=== PATIENT | female | born 1985 | race Two or more races ===

== ENCOUNTER 2020-05-22 22:15 | Observation (INO) | payer OTHER, MEDICAID ==
[~2020-05-22] VITALS: Ht 154.9 cm; Wt 66.2 kg
== END 2020-05-22 23:46 | disposition home or self-care (01) ==
LOC: LDRP 22:15
PROVIDERS: ADMIT Specialist; ATTEND Specialist
DX: O9A.212 Injury, poisoning and certain other consequences of external causes complicating pregnancy, second trimester (principal); S50.319A Abrasion of unspecified elbow, initial encounter; S80.219A Abrasion, unspecified knee, initial encounter; Z3A.22 22 weeks gestation of pregnancy; X58.XXXA Exposure to other specified factors, initial encounter; Y93.89 Activity, other specified; Y92.89 Other specified places as the place of occurrence of the external cause
CPT/HCPCS: 59025; 76815; 81002; G0378

== ENCOUNTER 2020-07-21 08:32 | Observation (INO) | payer OTHER, MEDICAID ==
[2020-07-21] MEDS ORDERED: PREN-96 PO (09:30)
[2020-07-21] MEDS ORDERED: CETI1TAB36 PO (09:31)
== END 2020-07-21 09:54 | disposition home or self-care (01) ==
LOC: LDRP 08:32 → UNDOADMOB 08:32 → UNDODISOB 09:54
PROVIDERS: ADMIT Specialist; ATTEND Specialist
DX: O26.13 Low weight gain in pregnancy, third trimester (principal); Z3A.30 30 weeks gestation of pregnancy
CPT/HCPCS: 59025; 76818; 81002; G0378

== ENCOUNTER 2020-07-28 08:09 | Observation (INO) | payer OTHER, MEDICAID ==
[~2020-07-28] VITALS: Ht 154.9 cm; Wt 66.2 kg
[~2020-07-28 08:09] MED LIST: CETI1TAB36 PO; PREN-96 PO
[2020-07-28] MEDS ORDERED: TERBUTALINE SULFATE 1 MG/ML 1ML VIAL SC SCH (09:15)
[2020-07-28] MEDS ORDERED: LACTATED RINGER'S 1,000 ML IV ONE (09:45)
== END 2020-07-28 11:40 | disposition home or self-care (01) ==
LOC: LDRP 08:09
PROVIDERS: ADMIT Obstetrics & Gynecology; ATTEND Obstetrics & Gynecology
DX: O99.891 Other specified diseases and conditions complicating pregnancy (principal); N13.30 Unspecified hydronephrosis; O60.03 Preterm labor without delivery, third trimester; O26.13 Low weight gain in pregnancy, third trimester; Z3A.31 31 weeks gestation of pregnancy
CPT/HCPCS: 59025; 76818; 81002; 96360; 96372; G0378; J3105

== ENCOUNTER 2020-08-01 23:45 | Observation (INO) | payer OTHER, MEDICAID | END 2020-08-02 00:37 | disposition home or self-care (01) | LOC: LDRP 23:45 | PROVIDERS: ADMIT Specialist; ATTEND Specialist | DX: O62.9 Abnormality of forces of labor, unspecified (principal); Z3A.32 32 weeks gestation of pregnancy | CPT/HCPCS: 59025; 81002; G0378 ==

== ENCOUNTER 2020-08-03 10:07 | Observation (INO) | payer OTHER, MEDICAID | END 2020-08-03 11:30 | disposition home or self-care (01) | LOC: LDRP 10:07 | PROVIDERS: ADMIT Specialist; ATTEND Specialist | DX: O99.891 Other specified diseases and conditions complicating pregnancy (principal); N13.30 Unspecified hydronephrosis; O26.893 Other specified pregnancy related conditions, third trimester; R63.4 Abnormal weight loss; Z3A.32 32 weeks gestation of pregnancy | CPT/HCPCS: 59025; 76818; 81002; G0378 ==

== ENCOUNTER 2020-08-11 10:38 | Observation (INO) | payer OTHER, MEDICAID ==
[~2020-08-11] VITALS: Ht 154.9 cm; Wt 72.6 kg
[2020-08-11] MEDS ORDERED: LACTATED RINGER'S 1,000 ML IV SCH (12:00)
[2020-08-11] MEDS: TERBUTALINE SULFATE 1 MG/ML 1ML VIAL SC SCH ×2 (12:54→13:21)
== END 2020-08-11 14:20 | disposition home or self-care (01) ==
LOC: LDRP 10:38
PROVIDERS: ADMIT Specialist; ATTEND Specialist
DX: O99.891 Other specified diseases and conditions complicating pregnancy (principal); N13.30 Unspecified hydronephrosis; O60.03 Preterm labor without delivery, third trimester; Z3A.33 33 weeks gestation of pregnancy
CPT/HCPCS: 59025; 76818; 81002; 96360; 96372; G0378; J3105; 96361

== ENCOUNTER 2020-08-17 09:11 | Observation (INO) | payer OTHER, MEDICAID ==
[2020-08-17] MEDS ORDERED: NIF10C PO (11:21)
== END 2020-08-17 11:30 | disposition home or self-care (01) ==
LOC: LDRP 09:11
PROVIDERS: ADMIT Specialist; ATTEND Specialist
DX: O99.891 Other specified diseases and conditions complicating pregnancy (principal); N13.30 Unspecified hydronephrosis; O34.63 Maternal care for abnormality of vagina, third trimester; N89.8 Other specified noninflammatory disorders of vagina; Z79.899 Other long term (current) drug therapy; Z3A.34 34 weeks gestation of pregnancy
CPT/HCPCS: 59025; 76818; 81002; G0378

== ENCOUNTER 2020-08-31 09:34 | Observation (INO) | payer OTHER, MEDICAID ==
[~2020-08-31 09:34] MED LIST changes: +NIF10C PO
== END 2020-08-31 11:16 | disposition home or self-care (01) ==
LOC: LDRP 09:34
PROVIDERS: ADMIT Specialist; ATTEND Specialist
DX: O26.833 Pregnancy related renal disease, third trimester (principal); N13.30 Unspecified hydronephrosis; Z3A.36 36 weeks gestation of pregnancy
CPT/HCPCS: 59025; 76818; 81002; G0378

== ENCOUNTER 2020-09-05 12:45 | Observation (INO) | payer OTHER, MEDICAID ==
[~2020-09-05 12:45] MED LIST changes: -NIF10C PO
== END 2020-09-05 13:55 | disposition home or self-care (01) ==
LOC: LDRP 12:45 → UNDOADMOB 12:45 → UNDODISOB 13:55
PROVIDERS: ADMIT Obstetrics & Gynecology; ATTEND Obstetrics & Gynecology
DX: O62.9 Abnormality of forces of labor, unspecified (principal); Z3A.37 37 weeks gestation of pregnancy
CPT/HCPCS: 59025; 81002; G0378

== ENCOUNTER 2020-09-09 13:22 | Observation (INO) | payer OTHER, MEDICAID | END 2020-09-09 14:51 | disposition home or self-care (01) | LOC: LDRP 13:22 | PROVIDERS: ADMIT Specialist; ATTEND Specialist | DX: O99.891 Other specified diseases and conditions complicating pregnancy (principal); N13.30 Unspecified hydronephrosis; O62.9 Abnormality of forces of labor, unspecified; O99.613 Diseases of the digestive system complicating pregnancy, third trimester; K21.9 Gastro-esophageal reflux disease without esophagitis; K80.80 Other cholelithiasis without obstruction; O26.893 Other specified pregnancy related conditions, third trimester; R42 Dizziness and giddiness; H53.9 Unspecified visual disturbance; O21.2 Late vomiting of pregnancy; O99.333 Smoking (tobacco) complicating pregnancy, third trimester; F17.200 Nicotine dependence, unspecified, uncomplicated; Z3A.37 37 weeks gestation of pregnancy | CPT/HCPCS: 59025; 76818; 81002; G0378 ==

== ENCOUNTER 2020-09-11 04:30 | Observation (INO) | payer OTHER, MEDICAID ==
[~2020-09-11] VITALS: Ht 154.9 cm; Wt 74.4 kg
== END 2020-09-11 08:15 | disposition home or self-care (01) ==
LOC: LDRP 04:30 → UNDOADMOB 04:30 → LDRP 06:20 → UNDODISOB 08:15
PROVIDERS: ADMIT Specialist; ATTEND Specialist
DX: O60.03 Preterm labor without delivery, third trimester (principal); Z3A.38 38 weeks gestation of pregnancy
CPT/HCPCS: 59025; 81002; G0378

== ENCOUNTER 2020-09-11 19:02 | Observation (INO) | payer OTHER, MEDICAID ==
[~2020-09-11] VITALS: Ht 154.9 cm; Wt 74.4 kg
== END 2020-09-11 20:03 | disposition home or self-care (01) ==
LOC: LDRP 19:02
PROVIDERS: ADMIT Specialist; ATTEND Specialist
DX: O24.419 Gestational diabetes mellitus in pregnancy, unspecified control (principal); O62.9 Abnormality of forces of labor, unspecified; O99.891 Other specified diseases and conditions complicating pregnancy; N13.30 Unspecified hydronephrosis; Z3A.38 38 weeks gestation of pregnancy
CPT/HCPCS: 59025; 81002; G0378

== ENCOUNTER 2020-09-17 22:26 | Inpatient (IN) | payer OTHER, MEDICAID ==
[~2020-09-17] VITALS: Ht 154.9 cm; Wt 74.4 kg
[2020-09-17] MEDS ORDERED: WITCH HAZEL-GLYCERIN PAD TOP PRN (23:00)
[2020-09-17] MEDS ORDERED: LACT. RINGERS/OXYTOCIN 20UNITS 1,000 ML IV ONE (23:00)
[2020-09-17] MEDS ORDERED: PHISODERM TOP SOLN 240ML BTL TOP PRN (23:00)
[2020-09-17] MEDS ORDERED: LIDOCAINE 2%HCL (LOCAL ANESTH.) INJ 20ML MDV IJ ONE (23:00)
[2020-09-17] MEDS ORDERED: LACTATED RINGER'S 1,000 ML IV SCH (23:00)
[2020-09-17] MEDS ORDERED: DERMOPLAST 60ML BOTTLE TOP PRN (23:00)
[2020-09-17 23:55] LABS: Basophils # (auto) 0 10 ^3/uL (0-0.2); Basophils % (auto) 0.3 % (0.0-2.0); Eosinophils # (auto) 0.1 10 ^3/uL (0-0.8); Hemoglobin 11.2 g/dL (12.2-16.2); Lymphocytes # (auto) 1.9 10 ^3/uL (0.4-5.4); Mean Corpuscular Hemoglobin 26.7 pg (28.0-32.0); Neutrophils # (auto) 9.3 10 ^3/uL (1.6-8.6)
[2020-09-17 23:56] LABS: Eosinophils % (auto) 0.8 % (0.0-7.0); Hematocrit 34.5 % (36.0-46.0); Lymphocytes % (auto) 15.7 % (10.0-50.0); Mean Corpuscular Hgb Conc. 32.5 g/dL (32.0-36.0); Mean Corpuscular Volume 82.2 fL (80.0-100.0); Monocytes # (auto) 0.6 10 ^3/uL (0-1.3); Monocytes % (auto) 5.4 % (0.0-12.0); Neutrophils % (auto) 77.8 % (37.0-80.0); Nucleated Red Blood Cells % 0.3 %; Platelet Count (auto) 306 10^3/uL (140-450); Red Blood Cells 4.19 10^6/uL (4.0-5.20); Red Cell Distribution Width 14.7 % (11.8-14.3)
[2020-09-18 00:16] LABS: Albumin 3.2 g/dL (3.4-5.0); BUN/Creatinine Ratio 7.8; Calcium 8.9 mg/dL (8.5-10.1); Potassium 3.6 mmol/L (3.5-5.1)
[2020-09-18 00:19] LABS: Bilirubin, Total 0.4 mg/dL (0.2-1.0); Total Protein 7.5 g/dL (6.4-8.2)
[2020-09-18 03:25] LABS: INR 0.92 (0.9-1.15); Partial Thromboplastin Time 23.3 sec (23.0-31.2)
[2020-09-18 04:28] LABS: Urine Bacteria FEW /hpf (None Seen); Urine Blood TRACE /uL (Negative); Urine Mucus FEW (None Seen); Urine Specific Gravity 1.018 (1.001-1.035); Urine WBC 1 /hpf (0 - 5)
[2020-09-18] MEDS ORDERED: IBUPROFEN 600 MG TAB PO PRN (07:15)
[2020-09-18 11:10] VITALS: BP 121/79
[2020-09-18 15:01] VITALS: BP 124/72
[2020-09-18 19:30] VITALS: BP 113/70
[2020-09-18 23:00] VITALS: BP 122/85
[2020-09-19 03:00] VITALS: BP 117/59
[2020-09-19 07:00] VITALS: BP 123/71
[2020-09-19 07:06] LABS: RPR Non Reactive (Non Reactive)
[2020-09-19 11:30] VITALS: BP 124/58
== END 2020-09-19 12:50 | disposition home or self-care (01) | DRG 807 ==
LOC: LDRP 22:26 → OBSVTOIN 23:55 → LDRP 09-18 00:13
PROVIDERS: ADMIT Specialist; ATTEND Specialist
PROC: 10E0XZZ Delivery of Products of Conception, External Approach (ICD-10-PCS; principal; 2020-09-18)
PROC: 0W8NXZZ Division of Female Perineum, External Approach (ICD-10-PCS; 2020-09-18)
DX: O80 Encounter for full-term uncomplicated delivery (principal); Z37.0 Single live birth; Z3A.39 39 weeks gestation of pregnancy; Z53.29 Procedure and treatment not carried out because of patient's decision for other reasons; Z20.828 Contact with and (suspected) exposure to other viral communicable diseases
CPT/HCPCS: 36415; 59025; 59409; 80053; 81001; 81002; 85025; 85610; 85730; 86592; 86850; 86900; 86901; 87426; 96361; 96365; G0378; J2590

== ENCOUNTER 2023-01-09 03:07 | Emergency (ER) | payer BC, MEDICAID ==
[~2023-01-09] VITALS: Ht 154.9 cm; Wt 75.0 kg
[2023-01-09 03:44] LABS: Basophils # (auto) 0.1 10 ^3/uL (0-0.2); Basophils % (auto) 0.6 % (0.0-2.0); Eosinophils # (auto) 0.3 10 ^3/uL (0-0.8); Eosinophils % (auto) 3.8 % (0.0-7.0); Hematocrit 38.1 % (36.0-46.0); Lymphocytes # (auto) 3.2 10 ^3/uL (0.4-5.4); Lymphocytes % (auto) 35.9 % (10.0-50.0); Mean Corpuscular Hgb Conc. 34.2 g/dL (32.0-36.0); Mean Corpuscular Volume 84.8 fL (80.0-100.0); Monocytes # (auto) 0.6 10 ^3/uL (0-1.3); Monocytes % (auto) 6.9 % (0.0-12.0); Neutrophils # (auto) 4.8 10 ^3/uL (1.6-8.6); Neutrophils % (auto) 52.8 % (37.0-80.0); Red Blood Cells 4.49 10^6/uL (4.0-5.20); Red Cell Distribution Width 13.3 % (11.8-14.3)
[2023-01-09 03:58] LABS: Potassium 3.5 mmol/L (3.5-5.1)
[2023-01-09 04:01] LABS: BUN/Creatinine Ratio 12.6 (10.0-20.0); Bilirubin, Total 0.2 mg/dL (0.2-1.0)
[2023-01-09] MEDS ORDERED: IODIXANOL 320MG/ML 100ML BTL IV ONE (04:57)
[2023-01-09 05:00] LABS: Urine Bacteria FEW /hpf (None Seen); Urine Blood Negative /uL (Negative); Urine Specific Gravity 1.024 (1.001-1.035); Urine WBC 11 /hpf (0 - 5)
[2023-01-09] MEDS ORDERED: HYDR1TAB97 PO (06:00)
[2023-01-09] MEDS ORDERED: ONDANSETRON HCL 4 MG/2 ML VIAL IV ONE (06:00)
[2023-01-09] MEDS ORDERED: MORPHINE SULFATE INJ 2 MG/ml SYRG IV ONE (06:00)
[2023-01-09 06:20] VITALS: BP 147/85
== END 2023-01-09 06:26 | disposition home or self-care (01) ==
LOC: ER 03:07 → EEVIPCON 03:07 → ER 06:24
DX: R10.11 Right upper quadrant pain (principal); R10.2 Pelvic and perineal pain; Z79.899 Other long term (current) drug therapy
CPT/HCPCS: 36415; 74177; 80053; 81001; 83690; 84702; 85025; 96374; 96375; 99285; J2270; J2405; Q9967

== ENCOUNTER 2025-02-05 10:50 | Inpatient (IN) | payer BC, MEDICAID ==
[~2025-02-05] VITALS: Ht 154.9 cm; Wt 76.3 kg
[~2025-02-05 10:50] MED LIST changes: +HYDR1TAB97 PO
--- NOTE | 2025-02-05 11:22 | ED.PDOC ---
GI ASSESSMENT HPI Comments 39y F who presents to the ED for chief complaint of abdominal pain. Pt states she has been having epigastric abdominal pain for the past 2 hours. Pt states the pain is constant, achy in nature, rating the pain 8/10, radiating to the back, with no noted exacerbating or relieving factors. Pt states she has associated nausea but denies vomiting, diarrhea, fever, cough, or chills. Pt states she has history of gallstones but states no surgery has been done. Pt otherwise denies any other symptoms at this time. Time Seen by MD: :21 Reviewed Notes: Medications, Allergies Allergies: Coded Allergies: NO KNOWN ALLERGIES (Unverified , 09/11/20) Home Meds Active Scripts Hydrocodone-Acetaminophen (Hydrocodone/Acetaminophen 5-325 mg) 1 Tab Tab, 1 TAB PO TIDP PRN for 5 Days, #8 TAB Prov:MARISEL HDZ MD 01/09/23 Reported Medications Cetirizine Hcl (ZYRTEC ALLERGY) 10 Mg Tab, 10 MG PO for SEASONAL ALLERGIES, TAB 07/21/20 Vit W/ Ferrous Fumara ( One Daily) Daily Tab, 1 PO DAILY for , #90 TAB 3 Refills 07/21/20 Information Source: Patient Mode of Arrival: Ambulatory Brought in by: self Timing: Hours Duration: Since onset Prehospital treatment: None Quality: Aching Vomitus: None Stool: Normal Severity: Moderate Recent: Possible spoiled food Recent Hx of: None Pain Location: Diffuse Modifying Factors: Food Associated sign and symptoms: Nausea, Abdominal Pain Past Medical History PAST MEDICAL HISTORY: Gallstones Surgical History: Denies all surgeries MANAGER ENGAGEMENT History: Denies all MANAGER ENGAGEMENT Hx Family History Family History: Reviewed,noncontributory to illness Social History Smoker: Non-Smoker Alcohol: Denies ETOH Use Drugs: Denies Drug Use Lives In: Home Constitutional: denies: chills, diaphoresis, fatigue, fever, malaise, sweats, weakness, others EENTM: denies: blurred vision, double vision, ear bleeding, ear discharge, ear drainage, ear pain, ear ringing, eye pain, eye redness, hearing loss, mouth pain, mouth swelling, nasal discharge, nose bleeding, nose congestion, nose pain, photophobia, tearing, throat pain, throat swelling, voice changes, others Respiratory: denies: cough, hemoptysis, orthopnea, SOB at rest, shortness of breath, SOB with excertion, stridor, wheezing, others Cardiovascular: denies: chest pain, dizzy spells, diaphoresis, Dyspnea on exertion, edema, irregular heart beat, left arm pain, lightheadedness, palpitations, PND, syncope, others Gastrointestinal: reports: abdominal pain, nausea; denies: abdomen distended, blood streaked bowels, constipated, diarrhea, dysphagia, difficulty swallowing, hematemesis, melena, poor appetite, poor fluid intake, rectal bleeding, rectal pain, vomiting, others Genitourinary: denies: abnormal vagina bleeding, burning, dyspareunia, dysuria, flank pain, frequency, hematuria, incontinence, pain, , vagina discharge, urgency, others Neurological: denies: dizziness, fainting, headache, left sided numbness, left sided weakness, numbness, paresthesia, pre-existing deficit, right sided numbness, right sided weakness, seizure, speech problems, tingling, tremors, weakness, others Musculoskeletal: denies: back pain, gout, joint pain, joint swelling, muscle pain, muscle stiffness, neck pain, others Integumetry: denies: bruises, change in color, change in hair/nails, dryness, laceration, lesions, lumps, rash, wounds, others Allergic/Immunocompromised: denies: Difficulty Healing, Frequent Infections, Hives, Itching, others Hematologic/Lymphatic: denies: anemia, blood clots, easy bleeding, easy bruising, swollen glands, others Endocrine: denies: excessive hunger, excessive sweating, excessive thirst, excessive urination, flushing, intolerance to cold, intolerance to heat, unexplained weight gain, unexplained weight loss, others Psychiatric: denies: anxiety, bipolar disorder, depression, hopeless, panic disorder, schizophrenia, sleepless, suicidal, others All Other Systems: Reviewed and Negative Physical Exam General Appearance: Moderate Distress, Obese HEENT: Normal ENT Inspection, Pharynx Normal, TMs Normal Neck: Full Range of Motion, Non-Tender, Normal, Normal Inspection Respiratory: Chest Non-Tender, Lungs Clear, No Accessory Muscle Use, No Respiratory Distress, Normal Breath Sounds Cardiovascular: No Edema, No JVD, No Murmur, No Gallop, Normal Peripheral Pulses, Regular Rate/Rhythm Breast Exam: Deferred Gastrointestinal: Epigastric, No Organomegaly, No Pulsatile Mass, Normal Bowel Sounds, Soft, Tenderness Genitalia: Deferred Pelvic: Deferred Rectal: Deferred Extremities: No calf tenderness, Normal capillary refill, Normal inspection, Normal range of motion, Non-tender, No pedal edema Musculoskeletal : Apperance: Normal Neurologic: Alert, cylinder dyer II-XII nml as Tested, No Motor Deficits, Normal Affect, Normal Mood, No Sensory Deficits Cerebellar Function: Normal Reflexes: Normal Skin: Dry, Normal Color, Warm Lymphatic: No Adenopathy Was a procedure done? Was a procedure done?: No GI differential Dx Differential Diagnosis: Cholecystitis, Gastritis/PUD, Gastroenteritis, Pancreatitis, Dehydration, Electrolyte Imbalance, Food Poisoning, Bacterial, Viral, Kidney Stone Other Differential Diagnosis gallstones, X-Ray, Labs, Meds, VS Vital Signs Date Time Temp Pulse Resp B/P (MAP) Pulse Ox O2 Delivery O2 Flow Rate FiO2 02/05/25 12:37 76 16 110/63 02/05/25 11:45 80 20 100 Room Air* 0 21 02/05/25 11:45 98.0 80 20 118/76 (90) 100 98.0 02/05/25 11:36 80 20 118/76 02/05/25 11:02 98.1 86 16 132/78 (96) 98 98.1 Lab Test 02/05/25 11:13 Range/Units White Blood Count 10.5 4.4-10.8 10^3/uL Red Blood Count 4.51 4.0-5.20 10^6/uL Hemoglobin 13.5 12.2-16.2 g/dL Hematocrit 39.3 36.0-46.0 % Mean Corpuscular Volume 87.2 80.0-100.0 fL Mean Corpuscular Hemoglobin 30.0 28.0-32.0 pg Mean Corpuscular Hemoglobin Concent 34.4 32.0-36.0 g/dL Red Cell Distribution Width 14.0 11.8-14.3 % Platelet Count 246 140-450 10^3/uL Mean Platelet Volume 8.6 6.9-10.8 fL Neutrophils (%) (Auto) 77.0 37.0-80.0 % Lymphocytes (%) (Auto) 16.7 10.0-50.0 % Monocytes (%) (Auto) 4.3 0.0-12.0 % Eosinophils (%) (Auto) 1.4 0.0-7.0 % Basophils (%) (Auto) 0.6 0.0-2.0 % Neutrophils # (Auto) 8.1 1.6-8.6 10 ^3/uL Lymphocytes # (Auto) 1.7 0.4-5.4 10 ^3/uL Monocytes # (Auto) 0.5 0-1.3 10 ^3/uL Eosinophils # (Auto) 0.1 0-0.8 10 ^3/uL Basophils # (Auto) 0.1 0-0.2 10 ^3/uL Nucleated Red Blood Cells 0.1 % Sodium Level 141 136-145 mmol/L Potassium Level 3.8 3.5-5.1 mmol/L Chloride Level 107 98-107 mmol/L Carbon Dioxide Level 24 20-31 mmol/L Anion Gap 10 5-15 Blood Urea Nitrogen 9 9-23 mg/dL Creatinine 0.81 0.550-1.02 mg/dL Glomerular Filtration Rate Calc 96 >90 mL/min BUN/Creatinine Ratio 11.1 10.0-20.0 Serum Glucose 118 H 74-106 mg/dL Calcium Level 9.2 8.7-10.4 mg/dL Total Bilirubin 0.2 0.2-1.0 mg/dL Aspartate Amino Transferase (AST) 11 L 13-40 U/L Alanine Aminotransferase (ALT) 13 7-40 U/L Alkaline Phosphatase 71 46-116 U/L Total Protein 7.5 5.7-8.2 g/dL Albumin 5.0 H 3.2-4.8 g/dL Lipase 52 12-53 U/L Current Medications Medications (Trade) Dose Ordered Sig/Dejan Route Start Time Stop Time Status Last Admin Sodium Chloride 1,000 ml @ 1,000 mls/hr Q1H ONCE IVB 02/05/25 11:15 02/05/25 12:14 DC 02/05/25 11:36 Morphine Sulfate 4 mg ONCE ONCE IV 02/05/25 11:15 02/05/25 11:16 DC 02/05/25 11:36 Pantoprazole Sodium (Protonix) 40 mg ONCE ONCE IV 02/05/25 11:15 02/05/25 11:16 DC 02/05/25 11:37 Prochlorperazine Edisylate (Compazine Inj) 10 mg ONCE ONCE IV 02/05/25 11:15 02/05/25 11:16 DC 02/05/25 11:36 TECHNIQUE: Multiple real-time sonographic images were obtained of the right upper quadrant. IMPRESSION: Cholelithiasis without sonographic evidence of acute cholecystitis. Hepatic steatosis. IV Hep-Lock was established. The patient was given morphine 4 mg IV push The patient was given Protonix 40 mg IV push The patient was given Compazine 10 mg IV push The patient was given a 1 L bolus of normal saline The patient's CBC is within normal limits The chemistry panel is within normal limits At this time, the patient was being admitted to the hospitalist The patient was still having persistent pain so will be admitted with a surgical consult Images Reviewed?: Images reviewed and evaluated by me Time of 1ST Reevaluation: 12:00 Reevaluation 1ST: Unchanged Patient Education/Counseling: Diagnosis, Treatment, Prognosis Family Education/Counseling: No Family Present Departure 1 Departure Time of Disposition: 13:08 Impression: Primary Impression: Intractable abdominal pain Additional Impression: Cholelithiasis Qualified Codes: K80.20 - Calculus of gallbladder without cholecystitis without obstruction Disposition: ADMITTED INPATIENT Admit to: Med Surg Condition: Fair Critical Care Note Critical Care Time?: No Stability Stability form required: Yes Unstable for transfer: ED Physician Assesment (Clinical assesment) Heart Score Heart Score: Heart Score Response (Comments) Value History N/A 0 EKG N/A 0 Age N/A 0 Risk Factors N/A 0 Troponin N/A 0 Total 0 I personally scribed for STEPHANIE XIE MD ([email or web address]) on 02/05/25 at 11:22. Electronically submitted by Margo Vann ([email or web address]). I personally scribed for STEPHANIE XIE MD ([email or web address]) on 02/05/25 at 11:49. Electronically submitted by Margo JEROME). STEPHANIE XIE MD February 05, 2025 11:22
[2025-02-05] MEDS: MORPHINE SULFATE 4 MG/ML SYR/VIAL IV ONE (11:36)
[2025-02-05] MEDS: SODIUM CHLORIDE 0.9% 1,000 ML IVB ONE (11:36)
[2025-02-05] MEDS: PROCHLORPERAZINE EDISYLATE 5 MG/ML 2ML VIAL IV ONE (11:36)
[2025-02-05] MEDS: PANTOPRAZOLE 40 MG/10 ML VIAL INJ IV ONE (11:37)
--- NOTE | 2025-02-05 11:41 | DVH ---
INDICATION: pain TECHNIQUE: Multiple real-time sonographic images were obtained of the right upper quadrant. COMPARISON: None FINDINGS: The liver demonstrates homogenous echotexture without focal mass lesions. The liver measure s 12 cm. There is no intrahepatic or extrahepatic ductal dilatation. The common duct measures 3 mm. Gallstones. The gallbladder wall measures 2 mm and is within normal limits. The right kidney measures 10.2 cm. The right kidney is normal in contour, size, and shape. The echog enicity is normal. There is no hydronephrosis. The pancreas is not well visualized due to overlying bowel gas. IMPRESSION: Cholelithiasis without sonographic evidence of acute cholecystitis. Hepatic steatosis.
[2025-02-05 11:45] VITALS: PULSE 80; RESP 20; O2SAT 100
[2025-02-05 12:02] LABS: Alanine Aminotransferase 13 U/L (7-40); Alkaline Phosphatase 71 U/L (46-116); Anion Gap 10 (5-15); BUN/Creatinine Ratio 11.1 (10.0-20.0); Calcium 9.2 mg/dL (8.7-10.4); Carbon Dioxide 24 mmol/L (20-31); Chloride 107 mmol/L (98-107); Lipase 52 U/L (12-53); Potassium 3.8 mmol/L (3.5-5.1); Sodium 141 mmol/L (136-145); Total Protein 7.5 g/dL (5.7-8.2)
[2025-02-05 12:04] LABS: Aspartate Aminotransferase 11 U/L (13-40); Bilirubin, Total 0.2 mg/dL (0.2-1.0); Blood Urea Nitrogen 9 mg/dL (9-23); Glucose 118 mg/dL (74-106)
[2025-02-05 12:09] LABS: Basophils # (auto) 0.1 10 ^3/uL (0-0.2); Basophils % (auto) 0.6 % (0.0-2.0); Eosinophils # (auto) 0.1 10 ^3/uL (0-0.8); Eosinophils % (auto) 1.4 % (0.0-7.0); Hematocrit 39.3 % (36.0-46.0); Hemoglobin 13.5 g/dL (12.2-16.2); Lymphocytes # (auto) 1.7 10 ^3/uL (0.4-5.4); Lymphocytes % (auto) 16.7 % (10.0-50.0); Mean Corpuscular Hgb Conc. 34.4 g/dL (32.0-36.0); Mean Corpuscular Volume 87.2 fL (80.0-100.0); Monocytes # (auto) 0.5 10 ^3/uL (0-1.3); Monocytes % (auto) 4.3 % (0.0-12.0); Neutrophils # (auto) 8.1 10 ^3/uL (1.6-8.6); Nucleated Red Blood Cells % 0.1 %; Platelet Count (auto) 246 10^3/uL (140-450); Red Blood Cells 4.51 10^6/uL (4.0-5.20); White Blood Cell 10.5 10^3/uL (4.4-10.8)
--- NOTE | 2025-02-05 13:14 | DVHHP2 ---
History of Present Illness Reason for Visit: abd pain History of Present Illness 39-year-old female with a past medical history of gallstones and no significant surgical history who presents with acute onset abdominal pain that began around 8:30 AM today. The patient describes the pain as severe and similar in character to a prior episode one year ago when she was diagnosed with gallstones. She denies any fever, nausea, vomiting, diarrhea, chest pain, or shortness of breath. She presented to the emergency department due to the intensity of the current pain. On exam, she was in moderate distress due to pain. Labs revealed a normal CBC and CMP, though her blood glucose was noted to be mildly elevated. She was treated in the ED with Compazine, Protonix, and morphine, which provided some symptom relief. Imaging via RUQ ultrasound showed cholelithiasis without signs of cholecystitis or biliary obstruction. Given the recurrence of symptoms and imaging findings, she will be admitted for further evaluation and management. Past Medical History see hpi above Past Surgical History see hpi above Family History Reviewed, non-contributory to the management of this case. Past Social History The patient lives at home, denies smoking, alcohol or illicit drugs abuse. Review of Systems Constitutional: No: Fever, Chills, Sweats, Weakness, Malaise, Other Eyes: No: Pain, Vision change, Conjunctivae inflammation, Eyelid inflammation, Other, Redness ENT: No: Ear pain, Ear discharge, Nose pain, Nose discharge, Nose congestion, Mouth pain, Mouth swelling, Throat pain, Throat swelling, Other Respiratory: No: Cough, Dry, Shortness of breath, SOB with excertion, Wheezing, Hemoptysis, Pleuritic Pain, Sputum, Wheezing, Other Cardiovascular: No: Chest Pain, Palpitations, Orthopnea, Paroxysmal Noc. Dyspnea, Edema, Lt Headedness, Other Gastrointestinal: Nausea, Vomiting, Abdominal Pain; No: Diarrhea, Constipation, Melena, Hematochezia, Other Genitourinary: No Dysuria, No Frequency, No Incontinence, No Hematuria, No Retention, No Other Musculoskeletal: No: other, neck pain, shoulder pain, arm pain, back pain, hand pain, leg pain, foot pain Skin: No: Rash, Lesions, Jaundice, Bruising, Other Neurological: No: Weakness, Numbness, Incoordination, Change in speech, Confusion, Seizures, Other Allergies: Coded Allergies: NO KNOWN ALLERGIES (Unverified , 09/11/20) Exam Vital Signs Vital Signs Date Time Temp Pulse Resp B/P (MAP) Pulse Ox O2 Delivery O2 Flow Rate FiO2 02/05/25 12:37 76 16 110/63 02/05/25 11:45 100 Room Air* 0 21 02/05/25 11:45 98.0 98.0 General Appearance: Alert, Oriented X3, Cooperative, No acute distress HEENT: Atraumatic, PERRLA, EOMI, Mucous membr. moist/pink Respiratory: Clear to auscultation, Normal air movement Cardiovascular: Regular rate, Normal S1, Normal S2, No murmurs Abdominal: Normal bowel sounds, Soft, No tenderness, No hepatospenomegaly, No masses Extremities: No clubbing, No cyanosis, No edema, Normal pulses, No tenderness/swelling Skin: No rashes, No breakdown, No significant lesion Neuro: Normal gait, Normal speech, Strength at 5/5 X4 ext, Normal tone, Sensation intact, Cranial nerves 3-12 NL Psych/Mental Status: Mental status NL, Mood NL Labs/Xrays Ultrasound shows gallbladder no infection hepatic steatosis I reviewed labs, imaging CT scan abdomen pelvis, EKG and all diagnostic studies on this patient from ED records and the medical chart Labs Test 02/05/25 11:13 Range/Units White Blood Count 10.5 4.4-10.8 10^3/uL Red Blood Count 4.51 4.0-5.20 10^6/uL Hemoglobin 13.5 12.2-16.2 g/dL Hematocrit 39.3 36.0-46.0 % Mean Corpuscular Volume 87.2 80.0-100.0 fL Mean Corpuscular Hemoglobin 30.0 28.0-32.0 pg Mean Corpuscular Hemoglobin Concent 34.4 32.0-36.0 g/dL Red Cell Distribution Width 14.0 11.8-14.3 % Platelet Count 246 140-450 10^3/uL Mean Platelet Volume 8.6 6.9-10.8 fL Neutrophils (%) (Auto) 77.0 37.0-80.0 % Lymphocytes (%) (Auto) 16.7 10.0-50.0 % Monocytes (%) (Auto) 4.3 0.0-12.0 % Eosinophils (%) (Auto) 1.4 0.0-7.0 % Basophils (%) (Auto) 0.6 0.0-2.0 % Neutrophils # (Auto) 8.1 1.6-8.6 10 ^3/uL Lymphocytes # (Auto) 1.7 0.4-5.4 10 ^3/uL Monocytes # (Auto) 0.5 0-1.3 10 ^3/uL Eosinophils # (Auto) 0.1 0-0.8 10 ^3/uL Basophils # (Auto) 0.1 0-0.2 10 ^3/uL Nucleated Red Blood Cells 0.1 % Sodium Level 141 136-145 mmol/L Potassium Level 3.8 3.5-5.1 mmol/L Chloride Level 107 98-107 mmol/L Carbon Dioxide Level 24 20-31 mmol/L Anion Gap 10 5-15 Blood Urea Nitrogen 9 9-23 mg/dL Creatinine 0.81 0.550-1.02 mg/dL Glomerular Filtration Rate Calc 96 >90 mL/min BUN/Creatinine Ratio 11.1 10.0-20.0 Serum Glucose 118 H 74-106 mg/dL Calcium Level 9.2 8.7-10.4 mg/dL Total Bilirubin 0.2 0.2-1.0 mg/dL Aspartate Amino Transferase (AST) 11 L 13-40 U/L Alanine Aminotransferase (ALT) 13 7-40 U/L Alkaline Phosphatase 71 46-116 U/L Total Protein 7.5 5.7-8.2 g/dL Albumin 5.0 H 3.2-4.8 g/dL Lipase 52 12-53 U/L Assessment/Plan Assessment/Plan 39-year-old female with recurrent symptomatic cholelithiasis, now presenting with acute abdominal pain and ultrasound-confirmed gallstones. acute intractable abdominal pain likely from gallstones found on us ordered morphine as needed for pain acute Symptomatic cholelithiasis Acute abdominal pain consistent with biliary colic RUQ ultrasound: gallstones present, no signs of acute cholecystitis CMP and CBC unremarkable, glucose mildly elevated Plan: Admit to medical service NPO status IV fluids: NS at 75 mL/hr Pain control with IV morphine as needed Antiemetics: Zofran PRN ordered Protonix 40 mg IV daily for GI prophylaxis General surgery consult for evaluation and potential cholecystectomy Monitor for fever, WBC trend, and signs of infection Problem List Symptomatic gallstones Mild hyperglycemia FEN / PROPHYLAXIS (PPx) Fluids/Electrolytes/Nutrition IV NS 75 mL/hr NPO until cleared by surgery DVT Prophylaxis Sequential compression devices (SCDs) Consider pharmacologic prophylaxis if surgery delayed and patient remains immobile GI Prophylaxis Protonix 40 mg IV daily DISPOSITION Admit to medicine for pain management, NPO status, surgical consultation, and monitoring for progression of biliary disease. Await surgical team evaluation to determine operative timing. Plan discussed with: Patient Date of Service: February 05, 2025 Billing Provider: MONI LEPE DNP Common Visit Codes: [id number] INP/OBS CARE (HIGH) MONI LEPE DNP February 05, 2025 13:14
[2025-02-05] MEDS ORDERED: ONDANSETRON HCL 4 MG/2 ML VIAL IV PRN (13:45)
[2025-02-05] MEDS ORDERED: DOCUSATE SOD 100 MG CAP PO PRN (13:45)
[2025-02-05] MEDS ORDERED: MORPHINE SULFATE INJ 2 MG/ml SYRG IV PRN (13:45)
[2025-02-05] MEDS ORDERED: NITROGLYCERIN 0.4 MG SL TAB SL PRN (13:45)
[2025-02-05 14:46] VITALS: BP 129/80; PULSE 85; RESP 16; TEMP 97.7; O2SAT 100
[2025-02-05 14:50] VITALS: BP 129/80; PULSE 85; RESP 16; TEMP 97.9; O2SAT 100
--- NOTE | 2025-02-05 15:22 | DVHINCON2 ---
Date of service: February 05, 2025 Family History: Patient reports no known family medical history. Allergies: Coded Allergies: NO KNOWN ALLERGIES (Unverified , 09/11/20) Home Meds Active Scripts Hydrocodone-Acetaminophen (Hydrocodone/Acetaminophen 5-325 mg) 1 Tab Tab, 1 TAB PO TIDP PRN for 5 Days, #8 TAB Prov:MARISEL HDZ MD 01/09/23 Reported Medications Cetirizine Hcl (ZYRTEC ALLERGY) 10 Mg Tab, 10 MG PO for SEASONAL ALLERGIES, TAB 07/21/20 Vit W/ Ferrous Fumara ( One Daily) Daily Tab, 1 PO DAILY for , #90 TAB 3 Refills 07/21/20 Current Medications Current Medications Medications (Trade) Dose Ordered Sig/Dejan Route PRN Reason Start Time Stop Time Status Last Admin Sodium Chloride 1,000 ml @ 120 mls/hr Q8H20M IV 02/05/25 13:45 Ondansetron HCl (Zofran) 4 mg Q4HP PRN IV NAUSEA / VOMITING 02/05/25 13:45 Docusate Sodium (Colace Capsule) 100 mg BIDPRN PRN PO FOR CONSTIPATION 02/05/25 13:45 Morphine Sulfate 2 mg Q4HPRN PRN IV SEVERE PAIN (7-10 PAIN SCALE) 02/05/25 13:45 Nitroglycerin (Ntrostat Sublingual) 0.4 mg Q5MINP PRN SL FOR CHEST PAIN 02/05/25 13:45 Vital Signs Vital Signs Date Time Temp Pulse Resp B/P (MAP) Pulse Ox O2 Delivery O2 Flow Rate FiO2 02/05/25 14:50 97.9 85 16 129/80 (96) 100 97.9 02/05/25 14:46 Room Air* 0 21 Labs/Diagnostic Data Labs Test 02/05/25 11:13 Range/Units White Blood Count 10.5 4.4-10.8 10^3/uL Red Blood Count 4.51 4.0-5.20 10^6/uL Hemoglobin 13.5 12.2-16.2 g/dL Hematocrit 39.3 36.0-46.0 % Mean Corpuscular Volume 87.2 80.0-100.0 fL Mean Corpuscular Hemoglobin 30.0 28.0-32.0 pg Mean Corpuscular Hemoglobin Concent 34.4 32.0-36.0 g/dL Red Cell Distribution Width 14.0 11.8-14.3 % Platelet Count 246 140-450 10^3/uL Mean Platelet Volume 8.6 6.9-10.8 fL Neutrophils (%) (Auto) 77.0 37.0-80.0 % Lymphocytes (%) (Auto) 16.7 10.0-50.0 % Monocytes (%) (Auto) 4.3 0.0-12.0 % Eosinophils (%) (Auto) 1.4 0.0-7.0 % Basophils (%) (Auto) 0.6 0.0-2.0 % Neutrophils # (Auto) 8.1 1.6-8.6 10 ^3/uL Lymphocytes # (Auto) 1.7 0.4-5.4 10 ^3/uL Monocytes # (Auto) 0.5 0-1.3 10 ^3/uL Eosinophils # (Auto) 0.1 0-0.8 10 ^3/uL Basophils # (Auto) 0.1 0-0.2 10 ^3/uL Nucleated Red Blood Cells 0.1 % Sodium Level 141 136-145 mmol/L Potassium Level 3.8 3.5-5.1 mmol/L Chloride Level 107 98-107 mmol/L Carbon Dioxide Level 24 20-31 mmol/L Anion Gap 10 5-15 Blood Urea Nitrogen 9 9-23 mg/dL Creatinine 0.81 0.550-1.02 mg/dL Glomerular Filtration Rate Calc 96 >90 mL/min BUN/Creatinine Ratio 11.1 10.0-20.0 Serum Glucose 118 H 74-106 mg/dL Calcium Level 9.2 8.7-10.4 mg/dL Total Bilirubin 0.2 0.2-1.0 mg/dL Aspartate Amino Transferase (AST) 11 L 13-40 U/L Alanine Aminotransferase (ALT) 13 7-40 U/L Alkaline Phosphatase 71 46-116 U/L Total Protein 7.5 5.7-8.2 g/dL Albumin 5.0 H 3.2-4.8 g/dL Lipase 52 12-53 U/L Assessment [id number] AFEBRILE VSS ABD SOFT NON TENDER RUQ PAIN RESOLVED WBC WNL LFT WNL RESOLVING BILIARY COLIC CONSIDER ELECTIVE GB SURGERY INDICATED CLEARED FOR DISCHARGE Plan discussed with: Patient CHRIST MATTSON MD February 05, 2025 15:22
[2025-02-05 17:00] VITALS: BP 124/84; PULSE 81; RESP 17; TEMP 98.1; O2SAT 99
[2025-02-05] MEDS: SODIUM CHLORIDE 0.9% 1,000 ML IV SCH (17:53)
--- NOTE | 2025-02-05 21:34 | DVHINCON2 ---
DATE OF CONSULTATION: 02/05/2025 HISTORY OF PRESENT ILLNESS: This patient is 39 years old, coming in with right upper quadrant pain. She had this happen a year ago during her and this pain resolved. She was not recommended any surgery. At that time, ultrasound was shown, indicating gallstones and right now, her pain has resolved. No nausea or vomiting. No fever or chills. No constipation or diarrhea. No hematochezia, melena, or bleeding per rectum. PAST MEDICAL HISTORY: No diabetes or hypertension. PAST SURGICAL HISTORY: No significant surgical history. PHYSICAL EXAMINATION: VITAL SIGNS: Afebrile, stable signs, with no evidence of pallor, cyanosis or jaundice. NECK: Supple, nontender with no thyromegaly or lymphadenopathy. CHEST AND LUNGS: Clear. HEART: Within normal limits. ABDOMEN: Soft, nontender. No rebound. EXTREMITIES: Unremarkable. NEUROLOGIC: Intact. LABORATORY DATA: White cell count is within normal limits and liver enzymes are within normal limits. Ultrasound shows cholelithiasis. No acute inflammation. CLINICAL IMPRESSION: Clinically, she does not appear to have acute inflammation. PLAN: The plan would be is to consider elective laparoscopic, possible open cholecystectomy based upon reevaluation. At this point, she needs to be managed conservatively. MD VIDAL Urbano/JOSE TID: [id number] RECEIPT: [id number] cc: REGAN Mayo
== END 2025-02-05 19:00 | disposition left against medical advice (07) ==
LOC: ER 10:50 → OVERFLOW 13:39 → EAST 15:02
PROVIDERS: ADMIT Nurse Practitioner Family; ATTEND Nurse Practitioner Family
DX: K80.70 Calculus of gallbladder and bile duct without cholecystitis without obstruction (principal); Z53.29 Procedure and treatment not carried out because of patient's decision for other reasons; Z79.899 Other long term (current) drug therapy
CPT/HCPCS: 36415; 76705; 80053; 83690; 85025; 96361; 96374; 96375; G0378; J2470